=== PATIENT | female | born 1945 | race African-American/Black ===

== ENCOUNTER 2018-01-11 06:49 | Emergency (ER) | payer OTHER ==
[~2018-01-11] VITALS: Ht 160 cm; Wt 90.5 kg
[2018-01-11] MEDS ORDERED: LISINOPRIL20 MG PO (06:59)
[2018-01-11] MEDS ORDERED: METFORMIN HCL500 MG PO (06:59)
[2018-01-11] MEDS ORDERED: TOPROL XL100 MG PO (06:59)
[2018-01-11] MEDS ORDERED: HYDRALAZINE 2525 MG PO (06:59)
[2018-01-11] MEDS ORDERED: TRAMADOL 50 MG50 MG PO ×2 (07:00→10:22)
[2018-01-11] MEDS ORDERED: LIPITOR 20 MG T20 M1 PO (07:00)
[2018-01-11] MEDS ORDERED: ASPIR 8181 MG PO (07:00)
[2018-01-11] MEDS ORDERED: NEURONTIN600 MG PO (07:00)
[2018-01-11] MEDS ORDERED: LASIX 40 MG TAB40 M2 PO (07:01)
[2018-01-11 07:11] LABS: ABSOLUTE EOSINOPHILS 0.2 thou/uL (0.0-0.7); ABSOLUTE LYMPHOCYTES 1.7 thou/uL (0.8-5.3); ABSOLUTE MONOCYTES 0.8 thou/uL (0.0-1.2); ABSOLUTE NEUTROPHILS 3.1 thou/uL (1.6-8.1); BASOPHILS 0.6 %; EOSINOPHILS 3.3 %; HEMATOCRIT 36.4 % (37.0-47.0); LYMPHOCYTES 29.3 %; MCH 29.3 pg (26.0-34.0); MCHC 32.8 g/dL (28.0-37.0); MCV 89.3 fL (80.0-100.0); MONOCYTES 12.9 %; MPV 10.8 fl. (7.2-11.1); NUCLEATED RBCS 0 /100WBC; PLATELET COUNT* 141 thou/uL (150-400); POLYS 53.9 %; RBC 4.08 mil/uL (4.20-5.00); RDW-CV 14.5 % (10.5-14.5); WBC 5.8 thou/uL (4.0-11.0)
[2018-01-11 07:19] LABS: ANION GAP 11 mmol/L (7-16); BUN 12 mg/dL (7-18); CALCIUM 8.9 mg/dL (8.5-10.1); CHLORIDE 103 mmol/L (98-107); CO2 26 mmol/L (21-32); CREATININE 0.8 mg/dL (0.6-1.3); GLUCOSE 212 mg/dL (70-99); POTASSIUM 3.1 mmol/L (3.5-5.1); SODIUM 140 mmol/L (136-145)
[2018-01-11 07:34] LABS: ALBUMIN 3.6 g/dL (3.4-5.0); ALKALINE PHOSPHATASE 89 U/L (46-116); LIPASE 184 U/L (73-393); MAGNESIUM 1.3 mg/dL (1.8-2.4); NT-PRO BRAIN NAT PEPTIDE 292 pg/mL (<300); SGOT 20 U/L (15-37); SGPT 29 U/L (30-65); TOTAL BILIRUBIN 0.8 mg/dL (<0.1-1.0); TOTAL PROTEIN 7.7 g/dL (6.4-8.2); TROPONIN-I LEVEL <0.06 ng/mL (<0.06)
[2018-01-11 07:57] LABS: URINE BILIRUBIN NEGATIVE (Negative); URINE BLOOD NEGATIVE (Negative); URINE CLARITY CLEAR; URINE COLOR STRAW; URINE GLUCOSE-RANDOM NEGATIVE (Negative); URINE KETONES NEGATIVE (Negative); URINE LEUKOCYTES NEGATIVE (Negative); URINE NITRITE NEGATIVE (Negative); URINE PROTEIN TRACE (Negative); URINE UROBILINOGEN 0.2 E.U./dl (0.2-1.0)
--- NOTE | 2018-01-11 10:25 | EKG ---
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
[2018-01-11 10:27] VITALS: BP 199/87
--- NOTE | 2018-01-11 15:14 | EKG ---
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 : 1945 Requested By: Ranulfo Koch Order Number: [id number] MD: Shaw Peralta Measurements Intervals [place] Rate: 75 P: -1 DC: 183 QRS: -14 QRSD: 83 T: 83 QT: 427 QTc: 477 Interpretive Statements Sinus rhythm Abnormal R-wave progression, late transition Left ventricular hypertrophy Baseline wander in lead(s) V3 Compared to ECG 01/11/2018 06:56:27 Left ventricular hypertrophy now present Myocardial infarct finding no longer present Electronically Signed On 01-11-2018 15:14:10 CDT by Shaw Peralta [email or web address] <ELECTRONICALLY SIGNED> By: Shaw Peralta MD, [facility] 01/11/18 1514 [phone] Shaw Peralta MD, [facility] /EPI
== END 2018-01-11 10:27 | disposition home or self-care (01) ==
LOC: M.ERS 06:49
PROVIDERS: Emergency Medicine Emergency Medical Services
DX: R00.2 Palpitations (principal); I10 Essential (primary) hypertension; Z91.040 Latex allergy status; Z88.0 Allergy status to penicillin